=== PATIENT | male | born 1945 | race Caucasian/White ===

== ENCOUNTER 2019-04-13 05:57 | Emergency (ER) | payer MEDICARE, OTHER ==
[2019-04-13 06:40] VITALS: BP 175/87; PULSE 83
[2019-04-13] MEDS ORDERED: methylPREDNISolone Sodium Succinate 125 MG/2 ML SDV IM ONE (06:53)
[2019-04-13] MEDS ORDERED: cefTRIAXone 1 GM Vial IM ONE (06:54)
[2019-04-13] MEDS ORDERED: methylPREDNISolone Sodium Succinate 125 MG/2 ML SDV ONE (07:03)
[2019-04-13] MEDS ORDERED: cefTRIAXone 1 GM Vial ONE (07:04)
--- NOTE | 2019-04-13 07:11 | EDM.PDOC ---
ED HPI GENERAL MEDICAL PROBLEM - General Chief Complaint: Respiratory Problem Stated Complaint: Pt's feels he may be developing pneumonia. Time Seen by Provider: 04/13/19 06:45 Source of Information: Reports: Patient History Limitations: Reports: No Limitations - History of Present Illness INITIAL COMMENTS - FREE TEXT/NARRATIVE: This is a 73yo M here for cough, chest congestion and productive sputum that was much worse last night. He spent the whole night coughing and was unable to sleep. He started coughing over a week ago and it has just gotten worse. He denies fever or chills but doesn't feel the greatest. He has a headache from coughing. Onset: Gradual Duration: Day(s): Location: Reports: Chest Severity: Moderate Improves with: Reports: None Worsens with: Reports: None Associated Symptoms: Reports: Headaches - Related Data Allergies Allergy/AdvReac Type Severity Reaction Status Date / Time No Known Allergies Allergy Verified 04/13/19 06:25 Home Meds: Home Meds Aspirin [Halfprin] 81 mg PO DAILY 01/30/13 [History] Furosemide [Lasix] 20 mg PO BID 01/30/13 [History] Glimepiride 4 mg PO BIDMEALS 01/30/13 [History] Multivitamin [Multi Vitamin Daily] 1 tab PO DAILY 01/30/13 [History] Pioglitazone [Actos] 30 mg PO DAILY 01/30/13 [History] Ramipril [Altace] 10 mg PO DAILY 01/30/13 [History] Simvastatin [Zocor] 20 mg PO DAILY 01/30/13 [History] amLODIPine Besylate [Norvasc] 10 mg PO DAILY 01/30/13 [History] carvediloL [Coreg] 25 mg PO BID 01/30/13 [History] metFORMIN HCl [Metformin HCl ER] 500 mg PO BID 01/30/13 [History] Past Medical History HEENT History: Reports: Cataract, Other (See Below) Other HEENT History: wears eyeglasses Cardiovascular History: Reports: Bypass, Heart Failure, High Cholesterol, Hypertension, Stents Other Cardiovascular History: Quadruple Bypass Respiratory History: Reports: Sleep Apnea Other Respiratory History: Using CPAP at home Gastrointestinal History: Reports: GERD Musculoskeletal History: Reports: Fracture Other Musculoskeletal History: 2 Broken ankle, Elbows, Rotator cap, Back bones Psychiatric History: Reports: Depression Endocrine/Metabolic History: Reports: Diabetes, Type II Oncologic (Cancer) History: Reports: Other (See Below) Other Oncologic History: Skin Cancer Dermatologic History: Reports: Other (See Below) Other Dermatologic History: Multiple site of Skin Cancer - Past Surgical History HEENT Surgical History: Reports: Cataract Surgery GI Surgical History: Reports: None Musculoskeletal Surgical History: Reports: Other (See Below) Other Musculoskeletal Surgeries/Procedures:: Elbow surgery Social & Family History - Family History Family Medical History: Noncontributory ED ROS GENERAL - Review of Systems Review Of Systems: Comprehensive ROS is negative, except as noted in HPI. ED EXAM, GENERAL - Physical Exam Exam: See Below Exam Limited By: No Limitations General Appearance: Alert, WD/WN, Mild Distress Eye Exam: Bilateral Eye: EOMI, PERRL Ears: Normal External Exam Nose: Normal Inspection Throat/Mouth: Normal Inspection Head: Atraumatic, Normocephalic Neck: Normal Inspection, Supple, Non-Tender Respiratory/Chest: Rhonchi, Wheezing Cardiovascular: Normal Peripheral Pulses, Regular Rate, Rhythm Peripheral Pulses: 2+: Dorsalis Pedis (L), Dorsalis Pedis (R) GI/Abdominal: Normal Bowel Sounds, Soft, Non-Tender, No Organomegaly Neurological: Alert, Oriented Psychiatric: Normal Affect, Normal Mood Skin Exam: Warm, Dry, Intact, Normal Color, No Rash Course - Vital Signs Last Recorded V/S: Last Vital Signs Temp 36.6 C 04/13/19 06:13 Pulse 83 04/13/19 06:13 Resp 18 04/13/19 06:13 BP 175/87 H 04/13/19 06:13 Pulse Ox 97 04/13/19 06:13 - Orders/Labs/Meds Orders: Active Orders 24 hr Category Date Time Status Chest 2V [CR] Stat Exams 04/13/19 06:34 Taken Meds: Medications Discontinued Medications Generic Name Dose Route Start Last Admin Trade Name Freq PRN Reason Stop Dose Admin Ceftriaxone Sodium 1 gm 04/13/19 06:54 Rocephin IM 04/13/19 06:55 ONETIME ONE Ceftriaxone Sodium Confirm 04/13/19 07:04 Rocephin Administered 04/13/19 07:05 Dose 1 gm .ROUTE .STK-MED ONE Methylprednisolone Sodium Succinate 125 mg 04/13/19 06:53 Solu-Medrol IM 04/13/19 06:54 ONETIME ONE Methylprednisolone Sodium Succinate Confirm 04/13/19 07:03 Solu-Medrol Administered 04/13/19 07:04 Dose 125 mg .ROUTE .STK-MED ONE Departure - Departure Time of Disposition: 07:08 Disposition: Home, Self-Care 01 Condition: Good Clinical Impression: Cough, Chest congestion - Discharge Information Referrals: PCP,None [Primary Care Provider] - Sepsis Event Note - Evaluation Sepsis Screening Result: No Definite Risk - Focused Exam Vital Signs: Vital Signs Temp Pulse Resp BP Pulse Ox 04/13/19 06:13 36.6 C 83 18 175/87 H 97 Date Exam was Performed: 04/13/19 Time Exam was Performed: 07:06 - Problem List & Annotations (1) Chest congestion SNOMED Code(s): 66923547 Code(s): R09.89 - OTH SYMPTOMS AND SIGNS INVOLVING THE CIRC AND RESP SYSTEMS Status: Acute Priority: High Current Visit: Yes (2) Cough SNOMED Code(s): 00991662 Code(s): R05 - COUGH Status: Acute Priority: High Current Visit: Yes - Problem List Review Problem List Initiated/Reviewed/Updated: Yes - My Orders Last 24 Hours: My Active Orders 04/13/19 06:34 Chest 2V [CR] Stat - Assessment/Plan Last 24 Hours: My Active Orders 04/13/19 06:34 Chest 2V [CR] Stat Plan: Discussed likely bronchitis that has worsened into a productive cough with early pneumonia. Discussed patient plan of care and close f/u if symptoms persist or worsen.
--- NOTE | 2019-04-13 11:37 | CR ---
Date of Service: 04/13/19 Clinical Data: cough PA AND LATERAL CHEST: Comparison is made to a prior exam dated 09/10/17. The patient is status post median sternotomy. The heart size is normal. The lungs are mildly hyperexpanded but clear. No changes from the prior exam. No evidence of acute intrathoracic disease. [id number] [facility]
== END 2019-04-13 07:15 | disposition home or self-care (01) ==
LOC: LB.ED 05:57
DX: R09.89 Other specified symptoms and signs involving the circulatory and respiratory systems (principal); I11.0 Hypertensive heart disease with heart failure; I50.9 Heart failure, unspecified; E11.9 Type 2 diabetes mellitus without complications; E78.00 Pure hypercholesterolemia, unspecified; F32.9 Major depressive disorder, single episode, unspecified; Z79.82 Long term (current) use of aspirin; Z79.84 Long term (current) use of oral hypoglycemic drugs; Z79.899 Other long term (current) drug therapy
CPT/HCPCS: 71046; 96372; 99283; 99283-25; J0696; J2930